=== PATIENT | male | born 1950 | race Caucasian/White ===

== ENCOUNTER 2021-04-25 11:39 | Emergency (ER) | payer MEDICARE, OTHER, SELFPAY ==
[2021-04-25 11:45] VITALS: BP 195/110; PULSE 75; RESP 14; TEMP 36.2; O2SAT 99; BMI 27.4
--- NOTE | 2021-04-25 12:05 | ED_ITS ---
HPI - Back Pain/Injury General Chief Complaint: Back Pain/Injury Stated Complaint: last night intense pain in kidney area, spasms Time Seen by Provider: 04/25/21 12:05 Source: patient Limitations: no limitations History of Present Illness HPI Narrative: Patient is a 70-year-old male here for evaluation of approximately 24 hours of occasional intense discomfort in his left flank/lower back. He states that he can reproduce it by putting himself in certain positions. He states it does feel like a muscle spasm. No urinary symptoms. No fevers. No change in bowel habits. No skin changes. Has not tried anything for symptoms prior to arrival. Related Data Previous Rx's Medication Instructions Recorded cyclobenzaprine 10 mg tablet 10 mg PO TID PRN #12 tab 04/25/21 Allergies Allergy/AdvReac Type Severity Reaction Status Date / Time No Known Drug Allergies Allergy Verified 04/25/21 11:50 Review of Systems Constitutional Constitutional: Denies fever(s) Cardiovascular Cardiovascular: Denies chest pain and Denies dyspnea Respiratory Respiratory: Denies dyspnea Gastrointestinal Gastrointestinal: Denies abdominal pain Musculoskeletal Musculoskeletal: Reports as per HPI Integumentary/Breasts Skin/Breast: Denies rash Neurologic Neurologic: Reports system reviewed and no additional complaints, except as documented Hematologic/Lymphatic On Anticoagulants: No Patient History Medical History Hypertension Social History Smoking Status: Never smoker Smoking Status: Never smoker alcohol intake frequency: 0-2 drinks per day Substance Use Type: does not use Exam Initial Vital Signs Initial Vital Signs: Vital Signs Temperature 97.1 F L 04/25/21 11:45 Pulse Rate 75 04/25/21 11:45 Respiratory Rate 14 04/25/21 11:45 Blood Pressure 195/110 H 04/25/21 11:45 Pulse Oximetry 99 04/25/21 11:45 Const General: cooperative and comfortable HENMT Head: normal to inspection and normocephalic Resp Effort & Inspection: normal respiratory effort Back/Spine/Pelvis Thoracic/Lumbar Spine: paraspinal tenderness (Left-sided paraspinal thoracolumbar), No thoracic spinal tenderness and No lumbar spinal tenderness Skin General: no rashes or lesions noted Neuro General: patient alert, patient awake and patient oriented x3 Extrem General: normal to inspection and capillary refill normal Psych Appearance: grossly normal and well kempt Course Orders Ordered: Discontinued Medications Cyclobenzaprine HCl (Cyclobenzaprine 10 Mg Tablet) 10 mg PO NOW ONE Stop: 04/25/21 12:57 Vital Signs Vital signs: Vital Signs - 8 hr 04/25/21 11:45 Temperature 97.1 F L Pulse Rate 75 Respiratory Rate 14 Blood Pressure 195/110 H Pulse Oximetry 99 MDM - Back Pain/Injury Lab Data Labs: Urine Dip Bedside Urine Glucose Negative Bedside Urine Bilirubin - Negative Bedside Urine Ketone - Negative Urine Specific [place] 1.020 Bedside Urine Occult Blood - Negative Bedside Urine pH 6.0 Bedside Urine Protein - Negative Bedside Urine Urobilinogen - Negative Bedside Urine Nitrite - Negative Bedside Urine Leukocytes - Negative Esterase MDM Narrative Medical decision making narrative: History and physical exam today is consistent with a paraspinal left-sided thoracolumbar muscle spasm. No rash over the area that would make me concern for zoster. No trauma. No indication for radiologic studies. Will treat with muscle relaxers. He was informed that this could make him potentially drowsy. He was given strict return precautions and follow-up instructions. He expressed understanding and agreement. Discharge Plan Departure Patient Disposition: Home Clinical Impression: Muscle spasm of back Instructions: DI for Muscle Spasm Activity Restrictions/Additional Instructions: I do recommend that you continue with conservative measures to include massa ge/heat/ice/light stretching and anti-inflammatories. Use the muscle relaxers as needed. Contact your primary provider for follow-up. Return to the emergency department for any new or worsening symptoms Prescriptions: New cyclobenzaprine 10 mg tablet 10 mg PO TID PRN (Reason: muscle spasm) Qty: 12 RF: 0 Referrals: Atul Pal MD [Primary Care Provider] -
[2021-04-25] MEDS: CYCLOBENZAPRINE 10 MG TABLET PO (13:08)
== END 2021-04-25 13:20 | disposition home or self-care (01) ==
PROVIDERS: Emergency Provider Emergency Medicine; PCP Family Medicine
DX: M62.830 Muscle spasm of back (principal)
CPT/HCPCS: 81003; 99283